=== PATIENT | male | born 1955 | race African-American/Black ===

== ENCOUNTER 2016-10-10 10:12 | Emergency (ER) | payer MEDICAID ==
[~2016-10-10] VITALS: Ht 180.3 cm; Wt 124.0 kg
[2016-10-10] MEDS ORDERED: BACITRACIN ZINC OINT UDPKT TOP ONE (11:45)
[2016-10-10 12:20] VITALS: BP 116/75
== END 2016-10-10 12:21 | disposition home or self-care (01) ==
LOC: ER 11:25
DX: L03.011 Cellulitis of right finger (principal); Z98.890 Other specified postprocedural states
CPT/HCPCS: 10060; 99283; Z7610

== ENCOUNTER 2018-07-16 10:54 | Emergency (ER) | payer MEDICAID ==
[~2018-07-16] VITALS: Ht 180.3 cm; Wt 113.0 kg
[2018-07-16] MEDS ORDERED: HYDROCODONE/ACETAMINOPHEN 10/325MG TABLET PO ONE (13:15)
[2018-07-16 13:39] VITALS: BP 134/65
== END 2018-07-16 15:19 | disposition home or self-care (01) ==
LOC: ER 11:04
DX: M79.672 Pain in left foot (principal); M79.89 Other specified soft tissue disorders; I10 Essential (primary) hypertension; Z98.890 Other specified postprocedural states
CPT/HCPCS: 73630; 93971; 99284

== ENCOUNTER 2020-10-11 08:12 | Emergency (ER) | payer BC, MEDICAID ==
[~2020-10-11] VITALS: Ht 180.3 cm; Wt 113.0 kg
[2020-10-11] MEDS ORDERED: IBUP-2029 MT (08:46)
[2020-10-11] MEDS ORDERED: CYCL10TA7 MT (08:46)
[2020-10-11 08:55] VITALS: BP 130/78
== END 2020-10-11 08:56 | disposition home or self-care (01) ==
LOC: ER 08:12
DX: M54.9 Dorsalgia, unspecified (principal); G89.29 Other chronic pain
CPT/HCPCS: 99282

== ENCOUNTER 2021-01-07 17:19 | Inpatient (IN) | payer BC, MEDICAID ==
[~2021-01-07] VITALS: Ht 180.3 cm; Wt 105.5 kg
[~2021-01-07 17:19] MED LIST: CYCL10TA7 MT; FINA5TAB11 PO; OXYC1TAB12 MT; TAMS-11 PO
[2021-01-07 19:10] LABS: CLARITY URINE TURBID (CLEAR); COLOR URINE YELLOW (YELLOW); KETONES URINE TRACE (NEGATIVE); LEUKOCYTE ESTERASE URINE 3+ (NEGATIVE); NITRITE URINE POSITIVE (NEGATIVE); OCCULT BLOOD URINE 2+ (NEGATIVE); PROTEIN URINE 3+ (NEGATIVE); SPECIFIC GRAVITY URINE 1.019 (1.005-1.030)
[2021-01-07] MEDS ORDERED: SODIUM CHLORIDE 0.9% 1000ML BAG (SEPSIS BOLUS) IV ONE (20:00)
[2021-01-07] MEDS ORDERED: CEFTRIAXONE 1 G PREMIX 50 ML IV ONE (20:00)
[2021-01-07 20:18] LABS: BASOPHILS % 0.3 % (0.0-2.0); EOSINOPHILS % 0.4 % (0.0-5.0); HEMATOCRIT. 39.9 % (42.0-52.0); HEMOGLOBIN. 13.6 g/dL (14.0-18.0); LYMPHOCYTES % 17.9 % (20.0-50.0); MEAN CORPUSCULAR HEMOGLOBIN 31.2 pg (28.0-32.0); MEAN CORPUSCULAR VOLUME 91.8 fL (80.0-94.0); MEAN PLATELET VOLUME 9.8 fl (7.4-10.4); MONOCYTES % 14.1 % (2.0-8.0); NEUTROPHILS % 67.3 % (40.0-76.0); PLATELET 334 x1000/uL (130-400); RED BLOOD CELL COUNT 4.35 mill/uL (4.7-6.1); RED CELL DISTRIBUTION WIDTH 14.6 % (11.6-14.6)
[2021-01-07 20:28] LABS: PROTHROMBIN TIME 10.8 sec (9.6-11.0)
[2021-01-07 21:21] LABS: CHLORIDE 105 mEq/L (98-107)
[2021-01-07] MEDS ORDERED: MORPHINE SULFATE 4 MG/ML CPJ (NOT FOR IM USE) IV ONE (21:30)
[2021-01-08] MEDS ORDERED: NALOXONE HCL 0.4MG/ML VIAL IV PRN (06:30)
[2021-01-08] MEDS: HYDROCODONE/ACETAMINOPHEN 10/325MG TABLET PO PRN ×3 (06:37→20:03)
[2021-01-08] MEDS: GABAPENTIN 300MG CAPSULE PO PRN (06:37)
[2021-01-08] MEDS ORDERED: ONDANSETRON HCL 4MG/2ML INJ IV PRN (08:45)
[2021-01-08] MEDS ORDERED: ACETAMINOPHEN 325MG TABLET PO PRN (08:45)
[2021-01-08] MEDS: TAMSULOSIN HCL 0.4MG SR CAPSULE PO SCH (10:03)
[2021-01-08 17:05] VITALS: BP 142/81
[2021-01-08 17:22] VITALS: BP 142/81
[2021-01-08 20:00] VITALS: BP 128/80
[2021-01-08] MEDS ORDERED: CEFTRIAXONE 1,000 MG in DEXTROSE 5% WATER 50 ML IV SCH (21:00)
[2021-01-09] VITALS: BP 135/82
[2021-01-09 04:00] VITALS: BP 118/78
[2021-01-09 08:00] VITALS: BP 124/79
[2021-01-09] MEDS: GABAPENTIN 300MG CAPSULE PO PRN (08:46)
[2021-01-09] MEDS: TAMSULOSIN HCL 0.4MG SR CAPSULE PO SCH (08:46)
[2021-01-09] MEDS: HYDROCODONE/ACETAMINOPHEN 10/325MG TABLET PO PRN (08:47)
[2021-01-09] MEDS ORDERED: LEVO500T89 MT (11:50)
[2021-01-09 12:00] VITALS: BP 111/76
[2021-01-09 12:27] VITALS: BP 111/76
== END 2021-01-09 14:25 | disposition home or self-care (01) | DRG 871 ==
LOC: ER 17:19 → MICUSO 23:00 → EDBEDREQSVC 23:10 → EDBEDREQTM 23:10 → EDBEDREQ 23:10 → 7EST 01-08 15:20
PROVIDERS: ADMIT Internal Medicine; ATTEND Internal Medicine
PROC: 0T2BX0Z Change Drainage Device in Bladder, External Approach (ICD-10-PCS; principal; 2021-01-07)
DX: A41.9 Sepsis, unspecified organism (principal); N17.0 Acute kidney failure with tubular necrosis; N39.0 Urinary tract infection, site not specified; E44.1 Mild protein-calorie malnutrition; T83.091A Other mechanical complication of indwelling urethral catheter, initial encounter; N40.0 Benign prostatic hyperplasia without lower urinary tract symptoms; I10 Essential (primary) hypertension; Z68.32 Body mass index [BMI] 32.0-32.9, adult
CPT/HCPCS: 36415; 80053; 81003; 83605; 84145; 85025; 87077; 87186; 93005; 99291; C1893; J0696; J2270; J7030; J7040; J7060; A4315

== ENCOUNTER 2021-02-05 17:18 | Emergency (ER) | payer BC, MEDICAID ==
[~2021-02-05] VITALS: Ht 180.3 cm; Wt 104.0 kg
[~2021-02-05 17:18] MED LIST changes: +LEVO500T89 MT
[2021-02-05 20:10] VITALS: BP 131/93
== END 2021-02-05 20:10 | disposition home or self-care (01) ==
LOC: ER 17:18
DX: K42.9 Umbilical hernia without obstruction or gangrene (principal)
CPT/HCPCS: 51702; 99284; A4315

== ENCOUNTER 2021-02-28 10:43 | Emergency (ER) | payer BC, MEDICAID ==
[~2021-02-28] VITALS: Ht 180.3 cm; Wt 108.0 kg
[2021-02-28 12:14] VITALS: BP 123/65
== END 2021-02-28 12:18 | disposition home or self-care (01) ==
LOC: ER 10:43
DX: K43.9 Ventral hernia without obstruction or gangrene (principal)
CPT/HCPCS: 99281

== ENCOUNTER 2021-12-27 10:07 | Emergency (ER) | payer BC, MEDICAID, OTHER ==
[~2021-12-27] VITALS: Ht 172.7 cm; Wt 82.0 kg
[~2021-12-27 10:07] MED LIST changes: +CYCL10TA21 MT; -CYCL10TA7 MT; -LEVO500T89 MT; +LEVO500T90 MT
[2021-12-27 10:24] VITALS: BP 130/93
== END 2021-12-27 14:14 | disposition home or self-care (01) ==
LOC: ER 11:53
DX: Z48.00 Encounter for change or removal of nonsurgical wound dressing (principal)
CPT/HCPCS: 99281

== ENCOUNTER 2024-10-19 14:23 | Emergency (ER) | payer MEDICARE, MEDICAID ==
[~2024-10-19] VITALS: Ht 180.3 cm; Wt 117.0 kg
[~2024-10-19 14:23] MED LIST changes: +LEVO-65 MT; -LEVO500T90 MT; -TAMS-11 PO; +TAMS-54 PO
[2024-10-19 14:28] VITALS: O2SAT 99
[2024-10-19 14:48] VITALS: BP 103/69; PULSE 88; RESP 18; TEMP 36.8; O2SAT 98
== END 2024-10-19 19:15 | disposition home or self-care (01) ==
LOC: ER 14:23
DX: T83.9XXA Unspecified complication of genitourinary prosthetic device, implant and graft, initial encounter (principal); N40.1 Benign prostatic hyperplasia with lower urinary tract symptoms; Y92.89 Other specified places as the place of occurrence of the external cause
CPT/HCPCS: 51702; 99284; A4606; A5200

== ENCOUNTER 2024-12-05 09:20 | Emergency (ER) | payer MEDICARE, MEDICAID ==
[~2024-12-05] VITALS: Ht 175.3 cm; Wt 95.0 kg
[2024-12-05 09:26] VITALS: BP 124/76; PULSE 76; RESP 18; TEMP 36.9; O2SAT 100; O2SAT 98
[2024-12-05 11:02] LABS: CLARITY URINE CLEAR (CLEAR); COLOR URINE YELLOW (YELLOW); GLUCOSE URINE NEGATIVE (NEGATIVE); KETONES URINE NEGATIVE (NEGATIVE); LEUKOCYTE ESTERASE URINE TRACE (NEGATIVE); NITRITE URINE NEGATIVE (NEGATIVE); OCCULT BLOOD URINE 1+ (NEGATIVE); PH URINE 6.0 (4.5-8.0); PROTEIN URINE 1+ (NEGATIVE); SPECIFIC GRAVITY URINE 1.022 (1.005-1.030); UROBILINOGEN URINE 0.2 E.U./dL (0.2-1.0)
[2024-12-05 11:38] LABS: BACTERIA URINE 1+; SQUAMOUS EPITHELIAL CELL URINE FEW /lpf (RARE/1+)
[2024-12-05 11:39] LABS: MUCUS URINE 1+ /lpf (NONE/TRACE); YEAST URINE 4+
[2024-12-05] MEDS ORDERED: FLUC150T46 MT (11:54)
[2024-12-05] MEDS ORDERED: CEFP200T13 MT (11:54)
== END 2024-12-05 13:33 | disposition home or self-care (01) ==
LOC: ER 09:20
DX: N39.0 Urinary tract infection, site not specified (principal); B37.9 Candidiasis, unspecified; N40.0 Benign prostatic hyperplasia without lower urinary tract symptoms; Z79.899 Other long term (current) drug therapy; Z46.6 Encounter for fitting and adjustment of urinary device; Z55.6 Problems related to health literacy
CPT/HCPCS: 51702; 81003; 99284

== ENCOUNTER 2024-12-13 12:14 | Emergency (ER) | payer MEDICARE, MEDICAID ==
[~2024-12-13] VITALS: Ht 180.3 cm; Wt 113.0 kg
[~2024-12-13 12:14] MED LIST changes: +CEFP200T13 MT; +FLUC150T46 MT
[2024-12-13 12:31] VITALS: TEMP 36.7; O2SAT 98
[2024-12-13] MEDS: HYDROCODONE/ACETAMINOPHEN 5/325MG TABLET PO ONE (14:45)
[2024-12-13 15:21] LABS: BASOPHILS % 0.6 % (0.0-2.0); EOSINOPHILS % 1.9 % (0.0-5.0); HEMATOCRIT. 39.9 % (42.0-52.0); HEMOGLOBIN. 13.1 g/dL (14.0-18.0); LYMPHOCYTES % 31.4 % (20.0-50.0); MEAN PLATELET VOLUME 7.9 fl (7.4-10.4); MONOCYTES % 9.3 % (2.0-8.0); NEUTROPHILS % 56.8 % (40.0-76.0); PLATELET 231 x1000/uL (130-400); RED BLOOD CELL COUNT 4.32 mill/uL (4.7-6.1); RED CELL DISTRIBUTION WIDTH 14.9 % (11.6-14.6)
[2024-12-13 15:33] LABS: CREATININE 1.4 mg/dL (0.6-1.3); UREA NITROGEN BLOOD 18 mg/dL (9-23)
[2024-12-13 17:32] LABS: CLARITY URINE CLOUDY (CLEAR); COLOR URINE YELLOW (YELLOW); GLUCOSE URINE NEGATIVE (NEGATIVE); KETONES URINE TRACE (NEGATIVE); LEUKOCYTE ESTERASE URINE 2+ (NEGATIVE); NITRITE URINE NEGATIVE (NEGATIVE); OCCULT BLOOD URINE 3+ (NEGATIVE); PH URINE 7.0 (4.5-8.0); PROTEIN URINE 1+ (NEGATIVE); SPECIFIC GRAVITY URINE 1.025 (1.005-1.030); UROBILINOGEN URINE 1.0 E.U./dL (0.2-1.0)
[2024-12-13] MEDS ORDERED: CEFP200T13 MT (17:40)
[2024-12-13] MEDS: CEFTRIAXONE SODIUM 1G VIAL IM ONE (17:48)
[2024-12-13] MEDS: LIDOCAINE HCL 1% 20ML VIAL INFIL ONE (17:48)
[2024-12-13 17:55] LABS: RBC URINE 50-100 /hpf (0-2); WBC URINE 50-100 /hpf (0-2)
[2024-12-13 17:56] LABS: BACTERIA URINE 1+; MUCUS URINE 1+ /lpf (NONE/TRACE); RENAL EPITHELIAL CELLS URINE 1+ /lpf; SQUAMOUS EPITHELIAL CELL URINE FEW /lpf (RARE/1+)
[2024-12-13 18:15] VITALS: BP 132/80; PULSE 69; RESP 18; O2SAT 100
== END 2024-12-13 18:19 | disposition home or self-care (01) ==
LOC: ER 12:14
DX: N39.0 Urinary tract infection, site not specified (principal); N40.0 Benign prostatic hyperplasia without lower urinary tract symptoms; N18.2 Chronic kidney disease, stage 2 (mild); Z79.899 Other long term (current) drug therapy; Z98.890 Other specified postprocedural states
CPT/HCPCS: 99284; 80048; 81003; 85025; 87086; 87186; 87077; 36415; 51702; 96372; J0696; J2003

== ENCOUNTER 2024-12-26 10:15 | Emergency (ER) | payer MEDICARE, MEDICAID ==
[~2024-12-26] VITALS: Ht 180.3 cm; Wt 114.7 kg
[2024-12-26 10:19] VITALS: PULSE 100; RESP 16; O2SAT 99
[2024-12-26 10:23] VITALS: BP 112/70; TEMP 36.8; O2SAT 97
[2024-12-26 14:11] LABS: CLARITY URINE CLEAR (CLEAR); COLOR URINE YELLOW (YELLOW); GLUCOSE URINE NEGATIVE (NEGATIVE); KETONES URINE NEGATIVE (NEGATIVE); LEUKOCYTE ESTERASE URINE NEGATIVE (NEGATIVE); NITRITE URINE NEGATIVE (NEGATIVE); OCCULT BLOOD URINE NEGATIVE (NEGATIVE); PH URINE 6.0 (4.5-8.0); PROTEIN URINE NEGATIVE (NEGATIVE); SPECIFIC GRAVITY URINE 1.022 (1.005-1.030); UROBILINOGEN URINE 1.0 E.U./dL (0.2-1.0)
== END 2024-12-26 14:55 | disposition home or self-care (01) ==
LOC: ER 10:15
DX: T83.9XXA Unspecified complication of genitourinary prosthetic device, implant and graft, initial encounter (principal); N40.0 Benign prostatic hyperplasia without lower urinary tract symptoms; Z79.899 Other long term (current) drug therapy; Z98.890 Other specified postprocedural states; Y92.89 Other specified places as the place of occurrence of the external cause
CPT/HCPCS: 81003; 99283

== ENCOUNTER 2025-01-07 12:18 | Emergency (ER) | payer MEDICARE, MEDICAID ==
[~2025-01-07] VITALS: Ht 180.3 cm; Wt 116.0 kg
[2025-01-07 12:27] VITALS: O2SAT 95
[2025-01-07 16:40] VITALS: BP 110/64; PULSE 97; RESP 16; TEMP 37; O2SAT 95
[2025-01-07 16:43] LABS: CLARITY URINE TURBID (CLEAR); COLOR URINE YELLOW (YELLOW); GLUCOSE URINE NEGATIVE (NEGATIVE); KETONES URINE NEGATIVE (NEGATIVE); LEUKOCYTE ESTERASE URINE 1+ (NEGATIVE); NITRITE URINE NEGATIVE (NEGATIVE); OCCULT BLOOD URINE TRACE (NEGATIVE); PH URINE 5.5 (4.5-8.0); PROTEIN URINE TRACE (NEGATIVE); SPECIFIC GRAVITY URINE 1.025 (1.005-1.030); UROBILINOGEN URINE 0.2 E.U./dL (0.2-1.0)
[2025-01-07 16:58] LABS: BACTERIA URINE 3+; SQUAMOUS EPITHELIAL CELL URINE FEW /lpf (RARE/1+)
== END 2025-01-07 16:53 | disposition home or self-care (01) ==
LOC: ER 12:18
DX: T83.9XXA Unspecified complication of genitourinary prosthetic device, implant and graft, initial encounter (principal); N40.0 Benign prostatic hyperplasia without lower urinary tract symptoms; Z79.899 Other long term (current) drug therapy; Z98.890 Other specified postprocedural states; Y92.89 Other specified places as the place of occurrence of the external cause
CPT/HCPCS: 81003; 99283; A4606

== ENCOUNTER 2025-01-17 09:51 | Emergency (ER) | payer MEDICARE, MEDICAID ==
[~2025-01-17] VITALS: Ht 180.3 cm; Wt 114.0 kg
[2025-01-17 10:11] VITALS: TEMP 36.7; O2SAT 100
[2025-01-17 12:49] LABS: CLARITY URINE CLEAR (CLEAR); COLOR URINE YELLOW (YELLOW); GLUCOSE URINE NEGATIVE (NEGATIVE); KETONES URINE NEGATIVE (NEGATIVE); LEUKOCYTE ESTERASE URINE NEGATIVE (NEGATIVE); NITRITE URINE NEGATIVE (NEGATIVE); OCCULT BLOOD URINE NEGATIVE (NEGATIVE); PH URINE 7.0 (4.5-8.0); PROTEIN URINE TRACE (NEGATIVE); SPECIFIC GRAVITY URINE 1.021 (1.005-1.030); UROBILINOGEN URINE 1.0 E.U./dL (0.2-1.0)
[2025-01-17 12:59] LABS: RBC URINE NONE SEEN /hpf (0-2); SQUAMOUS EPITHELIAL CELL URINE FEW /lpf (RARE/1+); WBC URINE 15-25 /hpf (0-2)
[2025-01-17 13:00] VITALS: BP 145/81; PULSE 82; RESP 16; O2SAT 100
[2025-01-17 13:17] LABS: BACTERIA URINE 1+; YEAST URINE NONE SEEN
== END 2025-01-17 13:18 | disposition home or self-care (01) ==
LOC: ER 09:51
DX: T83.9XXA Unspecified complication of genitourinary prosthetic device, implant and graft, initial encounter (principal); N40.0 Benign prostatic hyperplasia without lower urinary tract symptoms; Z98.890 Other specified postprocedural states; Z79.899 Other long term (current) drug therapy; Y92.89 Other specified places as the place of occurrence of the external cause
CPT/HCPCS: 51702; 81003; 99284

== ENCOUNTER 2025-03-08 11:47 | Emergency (ER) | payer MEDICARE, MEDICAID ==
[~2025-03-08] VITALS: Ht 180.3 cm; Wt 100.0 kg
[2025-03-08 11:56] VITALS: O2SAT 98
[2025-03-08 14:11] LABS: CLARITY URINE TURBID (CLEAR); COLOR URINE YELLOW (YELLOW); GLUCOSE URINE TRACE (NEGATIVE); KETONES URINE NEGATIVE (NEGATIVE); LEUKOCYTE ESTERASE URINE 3+ (NEGATIVE); NITRITE URINE POSITIVE (NEGATIVE); OCCULT BLOOD URINE 2+ (NEGATIVE); PH URINE 5.5 (4.5-8.0); PROTEIN URINE 1+ (NEGATIVE); SPECIFIC GRAVITY URINE 1.021 (1.005-1.030); UROBILINOGEN URINE 0.2 E.U./dL (0.2-1.0)
[2025-03-08 15:00] LABS: BACTERIA URINE 2+; SQUAMOUS EPITHELIAL CELL URINE 1+ /lpf (RARE/1+)
[2025-03-08] MEDS ORDERED: CEPH500T MT (15:30)
[2025-03-08 15:57] VITALS: BP 125/78; PULSE 89; RESP 16; TEMP 37; O2SAT 98
== END 2025-03-08 15:55 | disposition home or self-care (01) ==
LOC: ER 11:47
DX: N39.0 Urinary tract infection, site not specified (principal); N40.0 Benign prostatic hyperplasia without lower urinary tract symptoms; Z79.899 Other long term (current) drug therapy; Z98.890 Other specified postprocedural states
CPT/HCPCS: 51702; 81003; 99284; A4606